=== PATIENT | male | born 1970 | race Caucasian/White ===

== ENCOUNTER 2020-12-27 10:28 | Outpatient (CLI) | payer OTHER | END 2020-12-27 10:29 | disposition home or self-care (01) | LOC: BICULT 10:28 | PROVIDERS: ATTEND Internal Medicine | DX: R74.8 Abnormal levels of other serum enzymes (principal); Z12.11 Encounter for screening for malignant neoplasm of colon; R13.10 Dysphagia, unspecified | CPT/HCPCS: 76705 ==